=== PATIENT | female | born 1955 | race Caucasian/White ===

== ENCOUNTER 2023-07-31 14:59 | Observation (INO) | payer MEDICARE, BC, SELFPAY ==
[2023-07-31] VITALS (22 sets, daily range): BP systolic 141–168; BP diastolic 58–91; PULSE 67–98; RESP 16–20; TEMP 36.4–37.1; O2SAT 96–100; BMI 24.8; BMI 26.3
--- NOTE | 2023-07-31 16:33 | ED_ITS ---
HPI - General Adult General Time Seen by Provider: 16:33 Date Seen: 07/31/23 Chief complaint: Weakness Stated complaint: Post op kidney infection, back pain Time Seen by Provider: 07/31/23 16:18 Source: patient, family and RN notes reviewed Mode of arrival: ambulatory Limitations: no limitations History of Present Illness HPI narrative: Sangita is a 68-year-old female that had a carotid endarterectomy on the right side on July 17 at [place], was discharged reported than the . She states that she had a really low hemoglobin, they did consult GI when she was in the hospital and she did have an EGD. She states they cauterized any vessels that were close to the surface but the GI doctor told her he saw no source of bleeding. She went straight from her postoperative follow-up to the ER at [place] [address]. She had a negative chest CT PE protocol come in there was no abnormality seen on that, can see the report. She had a hemoglobin on July 20 of 7.6. I do not see 1 on the lab results from July 27. Her creatinine was normal. Her troponins which are troponin T highly sensitive have been mildly elevated since July 11, on July 27 it was 33. She is having no chest pain. She has low back pain. She wonders if she has a kidney infection. When she was in the ER on the 21/03, provided a urinalysis but they tell me it was not run. She feels like she has incomplete emptying, some pain with urination, going frequently, small amounts. She has not run any fever night sweats. She is eating okay, maybe not drinking as much and feels like she is not emptying her bladder normally. She did just start some Keflex, unclear to me when that was prescribed but possibly after or during the hospitalization, did not start until recently. Related Data Home Medications Medication Instructions Recorded Confirmed cephalexin 500 mg capsule 500 mg PO BID 07/31/23 07/31/23 clopidogrel 75 mg tablet 75 mg PO DAILY 07/31/23 07/31/23 dextroamphetamine-amphetamine 20 20 mg PO TID 07/31/23 07/31/23 mg tablet (Adderall) estradiol 0.01% (0.1 mg/gram) 1 g vaginal .COMPLEX 07/31/23 07/31/23 vaginal cream ferrous gluconate 324 mg (38 mg 324 mg PO DAILY 07/31/23 07/31/23 iron) tablet hydroxyzine HCl 10 mg tablet 20 mg PO Q6H PRN anxiety 07/31/23 07/31/23 pantoprazole 40 mg tablet,delayed 40 mg PO BID 07/31/23 07/31/23 release rosuvastatin 10 mg tablet (Crestor) 10 mg PO DAILY 07/31/23 07/31/23 rosuvastatin 20 mg tablet 20 mg PO QPM 07/31/23 07/31/23 valsartan 80 1 tab PO DAILY 07/31/23 07/31/23 mg-hydrochlorothiazide 12.5 mg tablet venlafaxine 150 mg 150 mg PO DAILY 07/31/23 07/31/23 capsule,extended release 24 hr (Effexor XR) zolpidem 10 mg tablet 5 - 10 mg PO QPM 07/31/23 07/31/23 Allergies Allergy/AdvReac Type Severity Reaction Status Date / Time No Known Drug Allergies Allergy Verified 07/31/23 15:32 Review of Systems Status of ROS: Reports: 6 or more systems reviewed and unremarkable except as noted in History and below [facility] Medical History (Updated 07/31/23 @ 22:43 by Yas Wells MD) Insomnia ?G47.00 - Insomnia, unspecified (ICD-10) Cataract ?H26.9 - Unspecified cataract (ICD-10) Essential (primary) hypertension ?I10 - Essential (primary) hypertension (ICD-10) Osteoarthritis ?M19.90 - Unspecified osteoarthritis, unspecified site (ICD-10) Tobacco use ?Z72.0 - Tobacco use (ICD-10) ADHD ?F90.9 - Attention-deficit hyperactivity disorder, unspecified type (ICD-10) Surgical History (Updated 07/31/23 @ 21:20 by Corin Jack MD) History of cataract surgery ?Z98.49 - Cataract extraction status, unspecified eye (ICD-10) Hx of total knee arthroplasty ?Z96.659 - Presence of unspecified artificial knee joint (ICD-10) H/O transcarotid artery revascularization (TCAR) ?Z98.62 - Peripheral vascular angioplasty status (ICD-10) Social History (Updated 07/31/23 @ 21:22 by Corin Jack MD) Narrative: Lives with partner Yousif Ramos in [place]. Yousif and Sangita's son Eleuterio would share MDM if needed. Working on smoking cessation (>30 pack year history) What is your current living situation?: I presently have a place to live Problems where you live: no known problems Problems where you live details: N/A In the past 12 months, utilities in danger of being shut off: no In past 12 months, lack of transportation kept you from medical appts, meetings, work, or getting things needed for daily living: no In the past 12 mos, have been you worried that your food would run out before you had money to buy more?: never true In the past 12 mos, the food you bought just didn't last and you didn't have money to buy more?: never true Highest level of school completed/degree received: Bachelor's degree Smoking Status: Current some day smoker What tobacco products do you use: cigarettes Second hand tobacco smoke exposure: Yes How often do you have a drink containing alcohol: never AUDIT-C Alcohol total score: 0 Non-prescribed substance use: denies use Caffeine: Yes (1 cup coffee daily) How often does anyone, including family, friends and others, physically hurt you : never How often does anyone, including family, friends and others, insult or talk down to you: never How often does anyone, including family, friends and others, threaten you with harm: never How often does anyone, including family, friends and others, scream or curse at you: never Gender Identity: female service: No Exam Const: Vital Signs, click to edit/add: Vital Signs - 24 hr 07/31/23 15:36 07/31/23 17:04 07/31/23 17:05 Temperature 98.7 F Pulse Rate 85 93 Pulse Rate [Pulse Oximeter] 98 Respiratory Rate 16 Blood Pressure 141/91 H Blood Pressure [Ri ght Upper Arm] 145/73 H Pulse Oximetry 100 99 100 Oxygen Delivery Me thod Room Air 07/31/23 17:15 07/31/23 17:15 07/31/23 17:30 Temperature Pulse Rate 84 84 Pulse Rate [Pulse Oximeter] Respiratory Rate Blood Pressure Blood Pressure [Ri ght Upper Arm] Pulse Oximetry 99 99 100 Oxygen Delivery Me thod 07/31/23 17:42 07/31/23 17:45 10/30/23 18:00 Temperature Pulse Rate 81 82 85 Pulse Rate [Pulse Oximeter] Respiratory Rate Blood Pressure 158/63 H Blood Pressure [Ri ght Upper Arm] Pulse Oximetry 100 99 100 Oxygen Delivery Me thod 07/31/23 18:02 07/31/23 18:15 07/31/23 18:30 Temperature Pulse Rate 82 84 81 Pulse Rate [Pulse Oximeter] Respiratory Rate Blood Pressure 147/61 H Blood Pressure [Ri ght Upper Arm] Pulse Oximetry 98 98 100 Oxygen Delivery Me thod 07/31/23 18:32 Temperature Pulse Rate 81 Pulse Rate [Pulse Oximeter] Respiratory Rate Blood Pressure 148/58 H Blood Pressure [Ri ght Upper Arm] Pulse Oximetry 98 Oxygen Delivery Me thod 5-year-old female lying in bed to, looks mildly pale but is alert, interactive, no apparent distress. She seems tired but is certainly pleasant. Sclera clear, conjugate gaze. Her surgical scar right neck is minimal, no erythema, looks to be well healing. No palpable neck masses. Lungs are clear, good air entry no wheezing or crackles. CV regular rate and rhythm, slight systolic murmur 1 to 2/6, normal S1-S2, no S3-S4. Abdomen is soft, no rebound or guarding, no organomegaly, not distended. No lower extremity edema noted. Patient did ambulate into the ED on her own. Symmetrical upper and lower extremity function. Documenting provider has reviewed patient's vital signs: yes Course Course ED Course: Will have her on pulse oximetry, established an IV, get a blood type with repeat CBC, comprehensive metabolic panel. I will do a troponin I on her, obtain an EKG. At this time will not repeat any chest imaging given she just had a normal chest CT PE protocol on July 27. Will obtain urinalysis, obtain bladder scan to ensure that she is not retaining. Reevaluation(s) Time of Reevaluation #1: 17:37 Reevaluation #1: Reviewed with patient that her hemoglobin is 6.2. She states this is lowest since surgery. She states what minimal stool output she is having is certainly not dark or elsie, no blood in stool. Have discussed transfusion with her. Nursing staff is getting a postvoid bladder scan, patient feels like she did empty. Reviewed with her urinalysis is not showing any evidence of any UTI. Consultations Time: 17:39 Vital Signs Vital signs: Initial Vital Signs Temperature 98.7 F 07/31/23 15:36 Temperature Source Temporal Artery Scan 07/31/23 15:36 Pulse Rate 98 07/31/23 15:36 Pulse Rhythm Regular 07/31/23 15:36 Pulse Strength 3+ Normal 07/31/23 15:36 Respiratory Rate 16 07/31/23 15:36 Blood Pressure 145/73 H 07/31/23 15:36 Blood Pressure Mean 97 07/31/23 15:36 Blood Pressure Position Sitting 07/31/23 15:36 Pulse Oximetry 100 07/31/23 15:36 Oxygen Delivery Method Room Air 07/31/23 15:36 Vital Signs Temperature 98.7 F 07/31/23 15:36 Pulse Rate 98 07/31/23 15:36 Respiratory Rate 16 07/31/23 15:36 Blood Pressure 145/73 H 07/31/23 15:36 Pulse Oximetry 100 07/31/23 15:36 Oxygen Delivery Method Room Air 07/31/23 15:36 Temperature 97.7 F 07/31/23 22:21 Pulse Rate 74 07/31/23 22:21 Respiratory Rate 20 07/31/23 22:21 Blood Pressure 144/65 H 07/31/23 22:21 Pulse Oximetry 99 07/31/23 22:21 Oxygen Delivery Method Room Air 07/31/23 21:35 Medical Decision Making Lab Data Lab results reviewed: Yes I reviewed the patient's lab results Labs: Lab Results 07/31/23 07/31/23 Range/Units 16:50 17:00 WBC 10.49 (4.50-11.00) K/uL RBC 2.04 L (4.00-5.20) m/uL Hgb 6.2 L* (12.0-16.0) gm/dL Hct 19.9 L (33.0-51.0) % MCV 98 (80-100) fL MCH 30 (26-34) pg MCHC 31 L (32-36) gm/dL RDW Coeff of Jose Francisco 14.5 (11.5-15.5) % Plt Count 404 (140-440) K/uL Neut % (Auto) 85.5 H (42.0-72.0) % Lymph % (Auto) 9.1 L (20-44) % [place] % (Auto) 5.1 (0.0-11.0) % Eos % (Auto) 0.0 (0.0-7.0) % Baso % (Auto) 0.0 (0.0-3.0) % Neut # (Auto) 9.00 H (1.7-7.0) K/uL Lymph # (Auto) 1.00 (0.90-2.90) K/uL [place] # (Auto) 0.50 (0.00-0.90) K/UL Eos # (Auto) 0.00 (0.00-0.50) K/uL Baso # (Auto) 0.00 (0.00-0.30) K/uL Abs Immat Gran (auto) 0.03 (0.00-0.30) K/uL Imm/Tot Granulo (auto) 0.3 % Sodium 135 (135-149) mmol/L Potassium 3.4 L (3.6-5.1) mmol/L Chloride 96 (96-114) mmol/L Carbon Dioxide 23 (20-32) mmol/L Anion Gap 16 H (7-15) mEq/L BUN 31 H (7-30) mg/dL Creatinine 1.3 (0.5-1.5) mg/dL Estimated Creat Clear 33.31 Estimated GFR 44 ml/min Glucose 127 H (60-115) mg/dL Lactate 2.2 H (0.5-1.9) mmol/L Calcium 8.8 (8.4-10.6) mg/dL Total Bilirubin 0.4 (0.1-1.5) mg/dL AST 46 H (12-35) U/L ALT 26 (4-35) U/L Alkaline Phosphatase 73 (40-150) U/L Total Protein 7.4 (6.0-8.3) g/dL Albumin 3.9 (3.3-5.0) g/dL Procalcitonin 0.11 (<0.50) ng/mL Urine Color Yellow (Yellow) Urine Appearance Clear (Clear) Urine pH 6.5 (5.0-8.5) Ur Specific [place] 1.020 (1.000-1.030) Urine Protein Negative (Negative) Urine Glucose (UA) Negative (Negative) Urine Ketones Negative (Negative) Urine Blood Negative (Negative) Urine Nitrite Negative (Negative) Urine Bilirubin Negative (Negative) Urine Urobilinogen 1.0 (0.2-1.0) Ur Leukocyte Esterase Negative (Negative) Urine RBC 0-2 (0-2) Urine WBC 0-2 (0-5) Ur Squamous Epith Cells None (None-Few) Urine Bacteria None (None) Blood Type A Positive Antibody Screen NEGATIVE Crossmatch (AHG) See Detail ECG Data Attestation: I personally reviewed and interpreted this ECG as follows: ( Normal sinus rhythm, 84 beats per minute, no acute abnormality noted. QT corrected 470 milliseconds.) Discharge Plan Discharge Clinical Impression: Anemia Patient Disposition: Admitted As Observation
[2023-07-31 16:55] LABS: Appearance Urine Clear (Clear); Bilirubin Urine Negative (Negative); Blood Urine Negative (Negative); Color Urine Yellow (Yellow); Glucose Urine Negative (Negative); Ketones Urine Negative (Negative); Leukocyte Esterase Urine Negative (Negative); Nitrite Urine Negative (Negative); Protein Urine Negative (Negative); pH Urine 6.5 (5.0-8.5)
[2023-07-31 17:17] LABS: Hematocrit 19.9 % (33.0-51.0); Immature Granulocytes Abs Auto 0.03 K/uL (0.00-0.30); Immature Granulocytes Pct Auto 0.3 %; Lactate* 2.2 mmol/L (0.5-1.9); Lymphocytes Percent Auto 9.1 % (20-44); Mean Corpuscular HGB Conc 31 gm/dL (32-36); Mean Corpuscular Hemoglobin 30 pg (26-34); Mean Corpuscular Volume 98 fL (80-100); Monocytes Percent Auto 5.1 % (0.0-11.0); Neutrophils Percent Auto 85.5 % (42.0-72.0); Platelet Count* 404 K/uL (140-440); RDW Coefficient of Variation % 14.5 % (11.5-15.5); Red Blood Count 2.04 m/uL (4.00-5.20); White Blood Count* 10.49 K/uL (4.50-11.00)
[2023-07-31 17:18] LABS: Hemoglobin* 6.2 gm/dL (12.0-16.0); Slide Review Reflex No
[2023-07-31 17:18] LABS: RBC Urine 0-2 (0-2); WBC Urine 0-2 (0-5)
[2023-07-31 17:39] LABS: Chloride* 96 mmol/L (96-114)
[2023-07-31 17:40] LABS: Albumin* 3.9 g/dL (3.3-5.0); Potassium* 3.4 mmol/L (3.6-5.1); Sodium* 135 mmol/L (135-149)
[2023-07-31 17:43] LABS: Alanine Aminotransferase* 26 U/L (4-35); Alkaline Phosphatase* 73 U/L (40-150); Anion Gap 16 mEq/L (7-15); Aspartate Amino Transferase* 46 U/L (12-35); Bilirubin Total* 0.4 mg/dL (0.1-1.5); Blood Urea Nitrogen* 31 mg/dL (7-30); Calcium* 8.8 mg/dL (8.4-10.6); Carbon Dioxide* 23 mmol/L (20-32); Creatinine* 1.3 mg/dL (0.5-1.5); Est. Creatinine Clearance* 33.31; Estimated Glomerular Filt Rate 44 ml/min; Glucose* 127 mg/dL (60-115); Total Protein* 7.4 g/dL (6.0-8.3)
[2023-07-31 18:00] LABS: Procalcitonin* 0.11 ng/mL (<0.50)
--- NOTE | 2023-07-31 18:36 | ED.NURSE ---
Susan given to Lisandra in [place] room 259. Lisandra PETERS on m/s made aware pt signed consent. Waiting on blood products from blood bank. Type and screen in process.
--- OUTSIDE RECORDS SUMMARY | 2023-07-31 18:41 | XMS_ITS | Continuity of Care Document ---
Author Name Unknown Organization [facility] Address [address] [address] [place] [address] Phone Care Team Providers Care Plug Paster Name Role Phone Criselda Jacome Unavailable Unavailabl e Procedures Procedure Date Subsqt Hosp-da E&m Minr Compl 3 Ugi Endo; W/contrl Bleed Any M 23 Init Hosp-da E&m Mod Severity 3 Subsqt Hosp-da E&m Minr Compl 3 Advance Directives Directive Yes / No Effective Date File Name No Information Encounters Encounter Description Practice Location Reason(s) For Visit Diagnoses Date Provider Providers Copied on Encounter Subsqt Hosp-da E&m Minr Compl [facility], [address] [address], [place], [place], [id number], [place] tel:[phone] [facility] No Information 3 Juan Aburto . [address] [place] [address], [address], [id number] , [place]. tel:[phone] Referring Provider: Criselda Dolan, [address] [place] [address], [id number] . tel:[phone] Init Hosp-da E&m Mod Severity [facility], [address] [address], [place], [place], [id number], [place] tel:[phone] [facility] No Information 3 Lyn Dodd. [address] [place] [address], [address], [id number] , [place]. tel:[phone] Referring Provider: Britney Shelley MD, [address], [place], [address]. tel:[phone] Family History Family Member Type Diagnosis Age At Onset No Information Payers Payer name Insurance type Covered libertarian ID Authorcarona zaina(s) Blue Cross Medicare Advantage [id number] Social History Type Description Quantity Date Captured Comments Sex Female Smoking Status No Information Chief Complaint And Reason For Visit No Information Reason For Referral Reason For Referral No Information History Of Present Illness Encounter Date Complaint History Of Prese nt Illness No Information Functional Status Date Functional Assessmen t No Information Instructions Date Instruction Additional Infor mation No Information Assessments Type Assessment Date No Information Patient Care Teams Name Effective Dates (start - stop) Status Members No Information
[2023-07-31] MEDS: ACETAMINOPHEN 500 MG TABLET 1000 MG PO (19:24)
[2023-07-31] MEDS: diphenhydrAMINE 25 MG CAPSULE 50 MG PO (19:24)
--- NOTE | 2023-07-31 19:53 | P.IMHP_ITS ---
Hospitalist- H&P: HPI History of Present Illness Date Seen: 07/31/23 Chief complaint: Post op kidney infection, back pain Narrative: Sangita Healy is a 68 year old female Who presented to the emergency room today for fatigue and possible UTI. She has felt poorly over the past few weeks; is an [facility] patient with a complicated recent history: diagnosed with severe right-sided carotid stenosis this summer, s/p TCAR at [facility] earlier this month. Post-procedure, found to have a Hgb of 7; EGD performed on 07/18 and revealed 2 nonbleeding angiodysplastic lesions in the stomach that were cauterized successfully. At [facility], transfusion with 1 unit of PRBCs was attempted; however, patient had c hest pressure during transfusion and procedure was aborted. She feels now that she may have had an anxiety attack during that procedure. Since hospitalization, she has continued to feel poorly, primarily weak. She has also had intermittent low back pain and has been worried about a UTI. At some point in the last couple of weeks, she was started on Keflex for symptoms. She was also recently seen at [address] in [place] with a hemoglobin of 7.6. At that time she had a CT scan done of her chest which exhibited reassuring findings. She is taking her PPI and has had no melena. Appetite has been good and she is eating normally. She has noted mild constipation since starting oral iron supplementation. Given persistent symptoms and fatigue, she presented to our emergency room to day. ER Course and Findings: - Hgb 6.2 - reassuring UA - reassuring VS Given history and persistent anemia, patient is amenable to hospital admission and transfusion. Histories updated below. PCP is Dr. Shelley in [place]. Review of Systems Status of ROS: Reports: 10 or more systems reviewed and unremarkable except as noted in History and below [facility] Medical History (Updated 07/31/23 @ 22:27 by Corin Jack MD) Insomnia ?G47.00 - Insomnia, unspecified (ICD-10) Cataract ?H26.9 - Unspecified cataract (ICD-10) Essential (primary) hypertension ?I10 - Essential (primary) hypertension (ICD-10) Osteoarthritis ?M19.90 - Unspecified osteoarthritis, unspecified site (ICD-10) Tobacco use ?Z72.0 - Tobacco use (ICD-10) ADHD ?F90.9 - Attention-deficit hyperactivity disorder, unspecified type (ICD-10) Surgical History (Updated 07/31/23 @ 21:20 by Corin Jack MD) History of cataract surgery ?Z98.49 - Cataract extraction status, unspecified eye (ICD-10) Hx of total knee arthroplasty ?Z96.659 - Presence of unspecified artificial knee joint (ICD-10) H/O transcarotid artery revascularization (TCAR) ?Z98.62 - Peripheral vascular angioplasty status (ICD-10) Social History (Updated 07/31/23 @ 21:22 by Corin Jack MD) Narrative: Lives with partner Yousif Ramos in [place]. Yousif and Sangita's son Eleuterio would share MDM if needed. Working on smoking cessation (>30 pack year history) What is your current living situation?: I presently have a place to live Problems where you live: no known problems Problems where you live details: N/A In the past 12 months, utilities in danger of being shut off: no In past 12 months, lack of transportation kept you from medical appts, meetings, work, or getting things needed for daily living: no In the past 12 mos, have been you worried that your food would run out before you had money to buy more?: never true In the past 12 mos, the food you bought just didn't last and you didn't have money to buy more?: never true Highest level of school completed/degree received: Bachelor's degree Smoking Status: Current some day smoker What tobacco products do you use: cigarettes Second hand tobacco smoke exposure: Yes How often do you have a drink containing alcohol: never AUDIT-C Alcohol total score: 0 Non-prescribed substance use: denies use Caffeine: Yes (1 cup coffee daily) How often does anyone, including family, friends and others, physically hurt you : never How often does anyone, including family, friends and others, insult or talk down to you: never How often does anyone, including family, friends and others, threaten you with harm: never How often does anyone, including family, friends and others, scream or curse at you: never Gender Identity: female service: No Meds Home Medications and Allergies Home Medications Medication Instructions Recorded Confirmed Type cephalexin 500 mg capsule 500 mg PO BID 07/31/23 07/31/23 History clopidogrel 75 mg tablet 75 mg PO DAILY 07/31/23 07/31/23 History dextroamphetamine-amphetamine 20 20 mg PO TID 07/31/23 07/31/23 History mg tablet (Adderall) estradiol 0.01% (0.1 mg/gram) 1 g vaginal .COMPLEX 07/31/23 07/31/23 History vaginal cream ferrous gluconate 324 mg (38 mg 324 mg PO DAILY 07/31/23 07/31/23 History iron) tablet hydroxyzine HCl 10 mg tablet 20 mg PO Q6H PRN anxiety 07/31/23 07/31/23 History pantoprazole 40 mg tablet,delayed 40 mg PO BID 07/31/23 07/31/23 History release rosuvastatin 10 mg tablet (Crestor) 10 mg PO DAILY 07/31/23 07/31/23 History rosuvastatin 20 mg tablet 20 mg PO QPM 07/31/23 07/31/23 History valsartan 80 1 tab PO DAILY 07/31/23 07/31/23 History mg-hydrochlorothiazide 12.5 mg tablet venlafaxine 150 mg 150 mg PO DAILY 07/31/23 07/31/23 History capsule,extended release 24 hr (Effexor XR) zolpidem 10 mg tablet 5 - 10 mg PO QPM 07/31/23 07/31/23 History Allergies Allergy/AdvReac Type Severity Reaction Status Date / Time No Known Drug Allergies Allergy Verified 07/31/23 15:32 Exam Narrative: Exam Narrative: GEN: Alert and oriented, nontoxic in appearance HEENT: Normal external ears, EOMIs bilaterally, no scleral icterus CV: RRR, No concerning murmurs, rubs, or gallops R: LCTA bilaterally without concerning wheezing, air movement adequate Ab: soft, nontender Ext: wwp, no concerning edema Skin: No concerning skin lesions or rashes on exposed skin Neuro: no focal deficits Psych: Appropriate; endorses a history of anxiety but does not appear overly anxious or perseverative today Const: Vital Signs, click to edit/add: Vital Signs - 24 hr 07/31/23 15:36 07/31/23 17:04 07/31/23 17:05 Temperature 98.7 F Pulse Rate 85 93 Pulse Rate [Pulse Oximeter] 98 Respiratory Rate 16 Blood Pressure 141/91 H Blood Pressure [Ri ght Upper Arm] 145/73 H Pulse Oximetry 100 99 100 Oxygen Delivery Me thod Room Air 07/31/23 17:15 07/31/23 17:15 07/31/23 17:30 Temperature Pulse Rate 84 84 Pulse Rate [Pulse Oximeter] Respiratory Rate Blood Pressure Blood Pressure [Ri ght Upper Arm] Pulse Oximetry 99 99 100 Oxygen Delivery Me thod 07/31/23 17:42 07/31/23 17:45 07/31/23 18:00 Temperature Pulse Rate 81 82 85 Pulse Rate [Pulse Oximeter] Respiratory Rate Blood Pressure 158/63 H Blood Pressure [Ri ght Upper Arm] Pulse Oximetry 100 99 100 Oxygen Delivery Me thod 07/31/23 18:02 07/31/23 18:15 07/31/23 18:30 Temperature Pulse Rate 82 84 81 Pulse Rate [Pulse Oximeter] Respiratory Rate Blood Pressure 147/61 H Blood Pressure [Ri ght Upper Arm] Pulse Oximetry 98 98 100 Oxygen Delivery Me thod 07/31/23 18:32 07/31/23 19:24 07/31/23 19:32 Temperature 98.1 F 98.1 F Pulse Rate 81 79 Pulse Rate [Pulse Oximeter] Respiratory Rate 20 Blood Pressure 148/58 H 164/68 H Blood Pressure [Ri ght Upper Arm] Pulse Oximetry 98 99 Oxygen Delivery Me thod Hospitalist - H&P: Result Labs Labs: Short CBC 07/31/23 Range/Units 17:00 WBC 10.49 (4.50-11.00) K/uL Hgb 6.2 L* (12.0-16.0) gm/dL Hct 19.9 L (33.0-51.0) % Plt Count 404 (140-440) K/uL BMP 07/31/23 17:00 Sodium 135 Potassium 3.4 L Chloride 96 Carbon Dioxide 23 BUN 31 H Creatinine 1.3 Glucose 127 H Calcium 8.8 Liver Function 07/31/23 Range/Units 17:00 Total Bilirubin 0.4 (0.1-1.5) mg/dL AST 46 H (12-35) U/L ALT 26 (4-35) U/L Alkaline Phosphatase 73 (40-150) U/L Albumin 3.9 (3.3-5.0) g/dL Urine 07/31/23 Range/Units 16:50 Urine Color Yellow (Yellow) Urine Appearance Clear (Clear) Urine pH 6.5 (5.0-8.5) Ur Specific [place] 1.020 (1.000-1.030) Urine Protein Negative (Negative) Urine Glucose (UA) Negative (Negative) Assessment and Plan Assessment and plan (1) Anemia: Problem comment: - amenable to transfusion of 2U PRBCs after risk/benefit discussion - premedicated with APAP and Benadryl - recheck labs tomorrow morning Status: Acute Plan - per above - continue home medications for comorbidities - close PCP f/u
[2023-07-31] MEDS: NICOTINE 7 MG PATCH 1 PATCH TRANSDERMA (22:17)
[2023-07-31] MEDS: SENNOSIDES/DOCUSATE TABLET 1 TAB PO (22:17)
[2023-07-31] MEDS: ZOLPIDEM 5 MG TABLET PO (22:17)
--- NOTE | 2023-07-31 23:20 | PC.NURSE ---
Pt a/o and able to verbalize her needs. Friendly and cooperative, [place]. BP's hypertensive, but pt appears comfortable. HR= 70's. Denies CP or pressure. Denies dizziness/lightheadedness. First unit PRBC's infused without difficulty an second unit started infusing. Report given to LORRAINE Lee.
[2023-08-01 03:00] VITALS: BP 112/93; PULSE 66; RESP 16; TEMP 36.5; O2SAT 98
--- NOTE | 2023-08-01 04:56 | PC.NURSE ---
Pt pleasant and cooperative. VSS She has received 2 Units PRBC's without difficulty. Up with [facility]. She is hoping to go home today.
[2023-08-01 07:00] VITALS: BP 154/68; PULSE 69; PULSE 71; RESP 16; TEMP 36.7; O2SAT 95
[2023-08-01 07:03] LABS: Basophils Absolute Auto 0.01 K/uL (0.00-0.30); Basophils Percent Auto 0.2 % (0.0-3.0); Eosinophils Absolute Auto 0.01 K/uL (0.00-0.50); Eosinophils Percent Auto 0.2 % (0.0-7.0); Hematocrit 24.2 % (33.0-51.0); Immature Granulocytes Abs Auto 0.01 K/uL (0.00-0.30); Immature Granulocytes Pct Auto 0.2 %; Lymphocytes Absolute Auto 1.54 K/uL (0.90-2.90); Lymphocytes Percent Auto 28.3 % (20-44); Mean Corpuscular HGB Conc 33 gm/dL (32-36); Mean Corpuscular Hemoglobin 31 pg (26-34); Mean Corpuscular Volume 93 fL (80-100); Monocytes Percent Auto 8.8 % (0.0-11.0); Neutrophils Percent Auto 62.3 % (42.0-72.0); Platelet Count* 291 K/uL (140-440); RDW Coefficient of Variation % 14.5 % (11.5-15.5); Red Blood Count 2.61 m/uL (4.00-5.20); White Blood Count* 5.45 K/uL (4.50-11.00)
[2023-08-01 07:22] LABS: Slide Review Reflex No
[2023-08-01 07:47] LABS: Chloride* 99 mmol/L (96-114); Sodium* 136 mmol/L (135-149)
[2023-08-01 07:48] LABS: Potassium* 3.2 mmol/L (3.6-5.1)
[2023-08-01 07:50] LABS: Creatinine* 1.1 mg/dL (0.5-1.5); Est. Creatinine Clearance* 39.37; Estimated Glomerular Filt Rate 54 ml/min
[2023-08-01 07:51] LABS: Anion Gap 10 mEq/L (7-15); Blood Urea Nitrogen* 26 mg/dL (7-30); Calcium* 8.4 mg/dL (8.4-10.6); Carbon Dioxide* 27 mmol/L (20-32); Glucose* 97 mg/dL (60-115)
[2023-08-01] MEDS: VENLAFAXINE ER 75 MG CAPSULE 150 MG PO (08:39)
[2023-08-01] MEDS: VALSARTAN 80 MG TABLET PO (08:39)
[2023-08-01] MEDS: hydroCHLOROthiazide 12.5 MG CAPSULE PO (08:40)
[2023-08-01] MEDS: CLOPIDOGREL 75 MG TABLET PO (08:40)
[2023-08-01] MEDS: OMEPRAZOLE 20 MG CAPSULE DR 40 MG PO (08:40)
[2023-08-01] MEDS: ACETAMINOPHEN 325 MG TABLET 975 MG PO (08:40)
[2023-08-01] MEDS: cephALEXin 500 MG CAPSULE PO (08:40)
[2023-08-01] MEDS: FERROUS SULFATE 325 MG TABLET PO (08:40)
[2023-08-01] MEDS: SODIUM CHLORIDE 0.9 % (FLUSH) 10 ML SYRINGE 5 ML IVF (09:40)
[2023-08-01] MEDS: POTASSIUM BICARB 25 MEQ EFFERVESCENT TAB 50 MEQ PO (09:40)
--- NOTE | 2023-08-01 12:27 | PM.DS1 ---
DS: Providers Provider Date Seen: 08/01/23 Date of admission: 07/31/23 18:39 Primary care physician: Britney Shelley MD Admitting Clinician: Corin Jack MD Attending Physician on discharge: Ryan Hayes MD DS: Diagnosis Discharge Diagnosis (1) Anemia: Status: Acute Problem details: Hemoglobin prior to carotid endarterectomy was 10.8. Following carotid endarterectomy was 7.2. On admission yesterday hemoglobin is 6.2. Received 2 units blood transfusion and hemoglobin is now 8.0. She received IV iron in the hospital and has been on oral iron for the last few days. Needs recheck of CBC next week. (2) GIB (gastrointestinal bleeding): Status: Acute Problem details: Anemia is presumed due to GI blood loss though blood loss from carotid endarterectomy is also contributing. Unclear whether any other evaluation for causes of anemia have been done. She had EGD showing to 1 mm angiodysplastic lesions that were cauterized. She also reports that she had a normal colonoscopy in June of this year. (3) Hypokalemia: Status: Acute Problem details: Potassium on admission was 3.4. She received oral potassium replacement. Needs outpatient recheck of potassium next week DS: Summary Hospital Course Hospital Course: 68-year-old female admitted to the hospital with profound weakness and fatigue. She attributes this to her progressive anemia. She reports that she was too weak to walk with a walker at home. This is a clear change in status for her. This has improved overnight in the hospital having received 2 units blood transfusion and her hemoglobin going from 6.2-8.0. Her anemia was 1st noted preoperatively, 3 weeks ago when she had a hemoglobin of 10.8. She underwent right carotid endarterectomy on July 17 and following that procedure she had a hemoglobin of 7.2. She has subsequently received IV iron and oral iron. She presents here with worsening fatigue and weakness and was found to have a hemoglobin of 6.2. She was transfused 2 units of blood and hemoglobin is up to 8.0. She reports feeling better today. She reports that she had a normal colonoscopy in June and she had an unremarkable EGD in the past 2 weeks except for 2 - 1 mm angiodysplastic lesions. These were cauterized prophylactically. She has been on aspirin and clopidogrel since before her endarterectomy. She reports that she is having ongoing dark stools but is also on oral iron therapy. Status at Discharge Functional status at discharge: uses cane/walker Overall status at discharge: patient is progressing back to baseline Time Spent with Patient Time attestation: Total time spent providing and/or coordinating discharge services: Time spent: Greater than 30 minutes Exam Narrative: Exam Narrative: She is alert and appears in no distress. She is oriented to her circumstances. Right Carotid endarterectomy scar is well healed without erythema or fullness or tenderness. Respirations are clear to auscultation. Cardiovascular: S1, S2, regular rate and rhythm. No murmur gallop or rub. Abdomen is soft without tenderness or mass. Const: Vital Signs, click to edit/add: Vital Signs - 24 hr 07/31/23 15:36 07/31/23 17:04 07/31/23 17:05 Temperature 98.7 F Pulse Rate 85 93 Pulse Rate [Pulse Oximeter] 98 Respiratory Rate 16 Blood Pressure 141/91 H Blood Pressure [Le ft Arm] Blood Pressure [Ri ght Upper Arm] 145/73 H Pulse Oximetry 100 99 100 Oxygen Delivery Me thod Room Air 07/31/23 17:15 07/31/23 17:15 07/31/23 17:30 Temperature Pulse Rate 84 84 Pulse Rate [Pulse Oximeter] Respiratory Rate Blood Pressure Blood Pressure [Le ft Arm] Blood Pressure [Ri ght Upper Arm] Pulse Oximetry 99 99 100 Oxygen Delivery Me thod 07/31/23 17:42 07/31/23 17:45 07/31/23 18:00 Temperature Pulse Rate 81 82 85 Pulse Rate [Pulse Oximeter] Respiratory Rate Blood Pressure 158/63 H Blood Pressure [Le ft Arm] Blood Pressure [Ri ght Upper Arm] Pulse Oximetry 100 99 100 Oxygen Delivery Me thod 07/31/23 18:02 07/31/23 18:15 07/31/23 18:30 Temperature Pulse Rate 82 84 81 Pulse Rate [Pulse Oximeter] Respiratory Rate Blood Pressure 147/61 H Blood Pressure [Le ft Arm] Blood Pressure [Ri ght Upper Arm] Pulse Oximetry 98 98 100 Oxygen Delivery Me thod 07/31/23 18:32 07/31/23 19:20 07/31/23 19:24 Temperature 97.8 F 98.1 F Pulse Rate 81 74 Pulse Rate [Pulse Oximeter] Respiratory Rate 20 Blood Pressure 148/58 H 168/70 H Blood Pressure [Le ft Arm] Blood Pressure [Ri ght Upper Arm] Pulse Oximetry 98 99 Oxygen Delivery Me thod 07/31/23 19:32 07/31/23 19:40 07/31/23 20:37 Temperature 98.1 F 98.1 F Pulse Rate 79 70 Pulse Rate [Pulse Oximeter] Respiratory Rate 20 20 20 Blood Pressure 164/68 H 166/75 H Blood Pressure [Le ft Arm] 164/68 H Blood Pressure [Ri ght Upper Arm] Pulse Oximetry 99 99 99 Oxygen Delivery Me thod Room Air 07/31/23 21:35 07/31/23 21:37 07/31/23 22:05 Temperature 98.4 F 98.5 F Pulse Rate 67 71 Pulse Rate [Pulse Oximeter] Respiratory Rate 20 20 20 Blood Pressure 157/68 H 153/66 H Blood Pressure [Le ft Arm] Blood Pressure [Ri ght Upper Arm] Pulse Oximetry 99 97 98 Oxygen Delivery Me thod Room Air 07/31/23 22:21 07/31/23 23:00 08/01/23 03:00 Temperature 97.7 F 97.6 F 97.7 F Pulse Rate 74 Pulse Rate [Pulse Oximeter] 75 66 Respiratory Rate 20 18 16 Blood Pressure 144/65 H Blood Pressure [Le ft Arm] 157/64 H 112/93 H Blood Pressure [Ri ght Upper Arm] Pulse Oximetry 99 96 98 Oxygen Delivery Me thod Room Air Room Air 08/01/23 07:00 08/01/23 07:00 08/01/23 07:00 Temperature 98.1 F Pulse Rate 71 Pulse Rate [Pulse Oximeter] 69 69 Respiratory Rate 16 16 Blood Pressure Blood Pressure [Le ft Arm] 154/68 H Blood Pressure [Ri ght Upper Arm] Pulse Oximetry 95 Oxygen Delivery Me thod Room Air Documenting provider has reviewed patient's vital signs: yes DS: Data Data Completed and Pending Labs on day of discharge: Labs from last 24 hours 08/01/23 07/31/23 07/31/23 06:37 17:00 16:50 WBC 5.45 10.49 RBC 2.61 L 2.04 L Hgb 8.0 L 6.2 L* Hct 24.2 L 19.9 L MCV 93 98 MCH 31 30 MCHC 33 31 L RDW Coeff of [place] 14.5 14.5 Plt Count 291 404 Neut % (Auto) 62.3 85.5 H Lymph % (Auto) 28.3 9.1 L [place] % (Auto) 8.8 5.1 Eos % (Auto) 0.2 0.0 Baso % (Auto) 0.2 0.0 Neut # (Auto) 3.40 9.00 H Lymph # (Auto) 1.54 1.00 [place] # (Auto) 0.50 0.50 Eos # (Auto) 0.01 0.00 Baso # (Auto) 0.01 0.00 Abs Immat Gran (auto) 0.01 0.03 Imm/Tot Granulo (auto) 0.2 0.3 Sodium 136 135 Potassium 3.2 L 3.4 L Chloride 99 96 Carbon Dioxide 27 23 Anion Gap 10 16 H BUN 26 31 H Creatinine 1.1 1.3 Estimated Creat Clear 39.37 33.31 Estimated GFR 54 44 Glucose 97 127 H Lactate 2.2 H Calcium 8.4 8.8 Total Bilirubin 0.4 AST 46 H ALT 26 Alkaline Phosphatase 73 Total Protein 7.4 Albumin 3.9 Procalcitonin 0.11 Urine Color Yellow Urine Appearance Clear Urine pH 6.5 Ur Specific [place] 1.020 Urine Protein Negative Urine Glucose (UA) Negative Urine Ketones Negative Urine Blood Negative Urine Nitrite Negative Urine Bilirubin Negative Urine Urobilinogen 1.0 Ur Leukocyte Esterase Negative Urine RBC 0-2 Urine WBC 0-2 Ur Squamous Epith Cells None Urine Bacteria None Blood Type A Positive Antibody Screen NEGATIVE Crossmatch (AHG) See Detail Discharge Plan Discharge Disposition: Home, Self-Care Date of Admission: 07/31/23 18:39 Attending Provider on Discharge: Alexei Hayes Primary Care Provider: Britney Shelley Condition: Improved Anticipated Discharge Date/Time: 08/01/23 11:32 Discharge Medications: Continued venlafaxine [Effexor XR] 150 mg capsule,extended release 24hr 150 mg PO DAILY clopidogrel 75 mg tablet 75 mg PO DAILY valsartan-hydrochlorothiazide 80-12.5 mg tablet 1 tab PO DAILY pantoprazole 40 mg tablet,delayed release (DR/EC) 40 mg PO BID dextroamphetamine-amphetamine [Adderall] 20 mg tablet 20 mg PO TID@08,12,15 estradiol 0.01 % (0.1 mg/gram) cream 1 g vaginal 1XD Rx Instructions: ONCE WEEKLY AT HS zolpidem 10 mg tablet 5 - 10 mg PO HS hydroxyzine HCl 10 mg tablet 20 mg PO Q6H PRN (Reason: anxiety) rosuvastatin 20 mg tablet 20 mg PO HS ferrous gluconate 324 mg (38 mg iron) tablet 324 mg PO DAILY aspirin [Adult Aspirin Regimen] 81 mg tablet,delayed release (DR/EC) 81 mg PO DAILY Discharge Orders: Discharge Order (Routine); Ordered 08/01/23 Ordered By: Alexei Hayes Patient Education: Gastrointestinal Bleeding (DC) Additional Instructions: If you are feeling worse or have evidence of bleeding (blood in stool) return to the emergency department. Activity Level: No Restrictions Discharge Diet: Regular Follow Up Appointments: Britney Shelley MD [Primary Care Provider] - 08/14/23 10:50 am ([facility] for follow up. Call the main number to set up appointment for lab work next week (08/07-08/11), to have recheck of CBC blood draw. You need to bring this paperwork when you go to the clinic in order for them to do the lab draw.) Forms: Latinda Info Instructions
--- NOTE | 2023-08-01 13:46 | PC.NURSE ---
Patient educated on d/c instructions, follow up, and s/s to seek ED for. pt verbalized understanding. IV removed. belongings form reviewed and signed, pt had 2 controlled substances that were also returned with other home meds. These were counted with LORRAINE Sung and signed off on, pt agreed to amt as well. pt discharged at 1345 via w/c home with spouse.
== END 2023-08-01 13:45 | disposition home or self-care (01) ==
LOC: ED 17:54 → MEDSURG 18:40
PROVIDERS: Admitting Provider Family Medicine; Emergency Provider Family Medicine; PCP Internal Medicine; Visit Provider Family Medicine
DX: D64.9 Anemia, unspecified (principal); E87.6 Hypokalemia; D50.9 Iron deficiency anemia, unspecified; K92.2 Gastrointestinal hemorrhage, unspecified; K21.9 Gastro-esophageal reflux disease without esophagitis; M54.50 Low back pain, unspecified; R30.9 Painful micturition, unspecified; R33.9 Retention of urine, unspecified; R35.0 Frequency of micturition; G47.00 Insomnia, unspecified; H26.9 Unspecified cataract; I10 Essential (primary) hypertension; Z98.62 Peripheral vascular angioplasty status; M19.90 Unspecified osteoarthritis, unspecified site; F90.9 Attention-deficit hyperactivity disorder, unspecified type; Z79.82 Long term (current) use of aspirin; F17.210 Nicotine dependence, cigarettes, uncomplicated; Z98.49 Cataract extraction status, unspecified eye; Z96.659 Presence of unspecified artificial knee joint
CPT/HCPCS: 36415; 36430; 80048; 80053; 81001; 83605; 84145; 85025; 86850; 86900; 86901; 86922; 93005; 94761; 97162; 97165; 99284; G0378; A9270; P9016; S4990